=== PATIENT | male | born 1965 | race Caucasian/White ===

== ENCOUNTER 2016-12-06 11:20 | Emergency (ER) | payer MEDICAID ==
[~2016-12-06] VITALS: Ht 167.6 cm; Wt 96.6 kg
[2016-12-06 11:51] VITALS: BP 130/75
[2016-12-06] MEDS ORDERED: KETOROLAC 30 MG/1 ML ONE (12:39)
[2016-12-06] MEDS ORDERED: KETOROLAC 30 MG/1 ML IM ONE (13:00)
== END 2016-12-06 13:21 | disposition home or self-care (01) ==
LOC: ED 13:15
DX: M25.461 Effusion, right knee (principal); G89.29 Other chronic pain; M25.561 Pain in right knee
CPT/HCPCS: 73564; 96372; 99284; J1885